=== PATIENT | female | born 1995 | race Caucasian/White ===

== ENCOUNTER 2022-04-01 18:11 | Emergency (ER) | payer MEDICAID, SELFPAY ==
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
[2022-04-01 18:09] VITALS: BP 105/64; PULSE 74; RESP 99; TEMP 36.4; O2SAT 99
--- NOTE | 2022-04-01 19:00 | DI.CT_ITS ---
Exam(s) CT HEAD WO EXAM: CT HEAD WO CLINICAL HISTORY: possible seizure, h/o craniotomy TECHNIQUE: COMPARISON: No exams were available for comparison FINDINGS: Noncontrast cranial CT was performed. No prior studies available for comparison. There is a large r ight craniotomy. There is severe right encephalomalacia and moderate left encephalomalacia/atrophy. No gross acute intracranial hemorrhage. No gross fracture. IMPRESSION: Severe presumably chronic encephalomalacia, right sided predominant, with large right frontal craniot shannon. No evidence of acute hemorrhage. Prior examination is requested for comparison to evaluate any possible change. RADIATION DOSE DELIVERED: 1,474.72mGy.cm Total DLP !Error CTDIvol DATA REPOSITORY: All CT scans at this facility are submitted to the National Radiology Data Registry (NRDR) Dose Index Registry (DIR) with the [employer] ([employer]). RADIATION OPTIMIZATION: All CT scans at this facility use at least one of these dose optimization te chniques: automated exposure control; mA and/or kV adjustment per patient size (includes targeted exa ms where dose is matched to clinical indication); or iterative reconstruction.
[2022-04-01 19:56] LABS: Abs Immature Grans 0.05 10^3/uL (0.0-0.06)
[2022-04-01 19:59] LABS: HCT 42.4 % (36.0-46.0); HGB 13.3 g/dL (11.2-15.7); MCH 30.4 pg (27.0-33.0); MCHC 31.4 % (32.0-36.0); MCV 97 fL (80-95); MPV 11.4 fL (8.0-11.0); Platelet Count 377 10^3/uL (130-400); RBC 4.37 10^6/uL (3.93-5.22); RDW 13.6 % (11.7-14.6); RDW-SD 49.1 fL; WBC 11.22 10^3/uL (4.4-10.8)
[2022-04-01 20:15] LABS: Absolute Eosinophil Count 0.11 10^3/uL (0.0-0.7); Absolute Lymphocyte Count 3.37 10^3/uL (1.2-3.4); Absolute Monocyte Count 0.45 10^3/uL (0.1-0.8); Absolute Neutrophil Count 7.29 10^3/uL (1.2-6.7)
[2022-04-01 20:16] LABS: ALT 105 U/L (14-59); AST 37 U/L (15-37); Albumin 3.5 g/dL (3.4-5.0); Alkaline Phosphatase 168 U/L (46-116); Anion Gap 5.8 mmol/L (3-11); BUN 22 mg/dL (7-18); Bilirubin, Total 0.2 mg/dL (0.2-1.0); CO2 33.2 mmol/L (21.0-32.0); CREATININE 0.4 mg/dL (0.55-1.02); Calcium 10.2 mg/dL (8.5-10.1); Chloride 102 mmol/L (98-107); Diff Comment Manual Differential; Estimated GFR 141.65 (mL/min/1.73m2); Glucose 87 mg/dL (74-106); Potassium 4.4 mmol/L (3.5-5.1); RBC Morphology Normal; Sodium 141 mmol/L (136-145); Total Protein 8.2 g/dL (6.4-8.2)
[2022-04-01] MEDS: Normal Saline 1,000 ML 1000 ML IV (20:28)
--- NOTE | 2022-04-01 20:36 | DI.VRAD_ITS ---
Addendum created by Radhames Crane MD on 04/01/2022 8:36:30 PM EDT: THIS REPORT CONTAINS FINDINGS THAT MAY BE CRITICAL TO PATIENT CARE. The findings were verbally communicated via telephone conference with domingo snow at 8:36 PM EDT on 04/01/2022. The findings were acknowledged and understood. Initial report created on 04/01/2022 8:36:12 PM EDT: PROCEDURE INFORMATION: Exam: CT Head Without Contrast Exam date and time: 04/01/2022 8:16 PM Age: 26 years old Clinical indication: Stroke-like symptoms; Other: Possible seizure, h/o craniotomy TECHNIQUE: Imaging protocol: Computed tomography of the head without contrast. Other technique: STROKE PROTOCOL was implemented. COMPARISON: No relevant prior studies available. FINDINGS: Brain: There is extensive encephalomalacia and volume loss seen throughout the right cerebral hemisphere with encephalomalacia/volume loss also identified along the inferior margin of the anterior left frontal lobe and in the anterior left insular region. Suspected chronic encephalomalacia also identified along the anterior aspect of the vermis and involving the adjacent midbrain. No acute transcortical infarction or recent intracranial hemorrhage is detected. Cerebral ventricles: Marked dilatation of the posterior body, trigone and temporal horn of the right lateral ventricle noted. Paranasal sinuses: Grossly clear throughout. Mastoid air cells: Grossly clear bilaterally. Bones/joints: A large right-sided craniectomy defect is seen associated with abnormal concavity of lateral right hemispheric contour and no acute fractures are detected. Soft tissues: Unremarkable. IMPRESSION: Grossly abnormal examination demonstrating multifocal encephalomalacia throughout both cerebral hemispheres and involving posterior fossa contents which may be posttraumatic and/or post ischemic in origin. Correlation with clinical data is requested. No acute transcortical infarction or recent intracranial hemorrhage is identified. ASSESSMENT: ASPECTS ([place] Stroke Program Early CT Score) is 10. Dictated and Authenticated by: Radhames Crane MD. Ordering:BRIAN Guthrie MD
[2022-04-01 21:07] VITALS: BP 106/67; PULSE 86; RESP 20; O2SAT 99
== END 2022-04-01 23:03 | disposition home or self-care (01) ==
PROVIDERS: Emergency Provider Physician Assistant; PCP Neuromusculoskeletal Medicine & OMM
DX: R56.9 Unspecified convulsions (principal); Z87.820 Personal history of traumatic brain injury
CPT/HCPCS: 80053; 96360; 99284; 70450; 85025; 99285

== ENCOUNTER 2023-03-22 23:23 | Emergency (ER) | payer MEDICAID, SELFPAY ==
[2023-03-22] VITALS (8 sets, daily range): BP systolic 96–104; BP diastolic 58–75; PULSE 66–73; RESP 12–17; TEMP 36.8; O2SAT 94–97
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
[2023-03-23] VITALS (36 sets, daily range): PULSE 65–81; RESP 10–24; O2SAT 93–98
[2023-03-23 00:45] LABS: Abs Immature Grans 0.05 10^3/uL (0.0-0.06); Absolute Basophil Count 0.05 10^3/uL (0.0-0.2); Absolute Eosinophil Count 0.13 10^3/uL (0.0-0.7); Absolute Lymphocyte Count 3.22 10^3/uL (1.2-3.4); Absolute Monocyte Count 1.56 10^3/uL (0.1-0.8); Absolute Neutrophil Count 4.09 10^3/uL (1.2-6.7); Basophils % 0.5; Eosinophils % 1.4; HCT 45.6 % (36.0-46.0); HGB 15.5 g/dL (11.2-15.7); Immature Grans % 0.5; Lymphocytes % 35.4; MCH 31.5 pg (27.0-33.0); MCV 93 fL (80-95); MPV 12.8 fL (8.0-11.0); Monocytes % 17.1; Neutrophils % 45.1; Nucleated RBC 0.2 % (0.0-0.3); Platelet Count 288 10^3/uL (130-400); RBC 4.92 10^6/uL (3.93-5.22); RDW 15.6 % (11.7-14.6); RDW-SD 53.2 fL
[2023-03-23 01:07] LABS: ALT 85 U/L (14-59); AST 34 U/L (15-37); Albumin 3.2 g/dL (3.4-5.0); Alkaline Phosphatase 244 U/L (46-116); Anion Gap 8.1 mmol/L (3-11); BUN 11 mg/dL (7-18); Bilirubin, Total 0.2 mg/dL (0.2-1.0); CO2 31.9 mmol/L (21.0-32.0); CREATININE 0.5 mg/dL (0.55-1.02); Calcium 10.8 mg/dL (8.5-10.1); Chloride 95 mmol/L (98-107); Glucose 101 mg/dL (74-106); NT-proBNP 15 pg/mL (<300); Potassium 3.4 mmol/L (3.5-5.1); Sodium 135 mmol/L (136-145); Total Protein 8.8 g/dL (6.4-8.2)
[2023-03-23 01:14] LABS: Procalcitonin < 0.1 ng/mL
[2023-03-23 01:20] LABS: Bilirubin Negative (Negative); Blood Negative (Negative); Clarity Cloudy (Clear); Glucose Negative (Negative); Ketones Negative (Negative); Leukocyte Esterase Small (Negative); Nitrite Positive (Negative); Specific Gravity 1.015 (1.005-1.025); Urobilinogen 0.2 mg/dL (Up to 0.2); pH 7.5 (5-8)
[2023-03-23] MEDS: Omnipaque 350 MG/ML 100 ML BTL IJ (01:25)
[2023-03-23] MEDS: Normal Saline - Diluent 50 ML VIAL IJ (01:26)
[2023-03-23] MEDS: Normal Saline Flush 10 ML SYR IVP (01:26)
[2023-03-23 01:38] LABS: Bacteria Few HPF (Negative); Crystals Moderate Amorphous HPF (Negative); Epithelial Cells Few HPF (Negative); RBC 0-2 HPF (0-2)
[2023-03-23 01:39] LABS: C & S Indicated? Yes; Mucus Negative (Negative)
[2023-03-23 01:43] LABS: COVID-19 PCR Negative (Negative); Influenza A PCR Negative (Negative); Influenza B PCR Negative (Negative); RSV PCR Negative (Negative)
[2023-03-23 01:49] LABS: Source Nasopharynx
--- NOTE | 2023-03-23 01:50 | TELEP.MEDR_ITS ---
Date of service: 03/23/23 Time of Service: 01:50 [facility] Home Med Rec Allergies Allergies: No Known Allergies Allergy (Unverified 03/22/23 23:42) Interview Person Interviewed: * Patients mother, Radha Quality Quality of Interview/Accuracy of Medication List: Good Sources Sources used to compile medication list: [employer] Medication List and SureScripts Changes made to Home Medication List: ADDITIONS: * Nexium 40mg granules in packet per gtube daily * Chlorthalidone 25mg per gtube daily * Nystatin powder 1 application topically bid prn * Miralax 17g per gtube daily prn DELETIONS: * Bromocriptine * Dantrolene * Famotidine CHANGES: * Keppra 1000mg per gtube bid and additional 500mg daily prn * Senna 5mL per gtube daily prn (was scheduled) * Valproic acid 250mg/5mL per gtube bid (was tid) * Chlorhexidine 0.12% mouth was daily (was bid) Additional Notes Additional Notes: * Patients mother wasnt sure if albuterol or Duoneb was being used at home in the nebulizer machine for this patient. No recent fill history in surescript data to be help clarify. Recommended Changes Recommended Changes(reason for recommendation): * None Attestation: The home medication list is now updated to the best of my knowledge and is ready to be reconciled by the provider. Please contact the [facility] Medication Reconciliation Pharmacist at for any questions.
--- NOTE | 2023-03-23 01:50 | TELEP.MEDREC ---
Date of service: 03/23/23 Time of Service: 01:50 [facility] Home Med Rec Allergies Allergies: No Known Allergies Allergy (Unverified 03/22/23 23:42) Interview Person Interviewed: Patients mother, Radha Quality Quality of Interview/Accuracy of Medication List: Good Sources Sources used to compile medication list: [employer] Medication List and SureScripts Changes made to Home Medication List: ADDITIONS: Nexium 40mg granules in packet per gtube daily Chlorthalidone 25mg per gtube daily Nystatin powder 1 application topically bid prn Miralax 17g per gtube daily prn DELETIONS: Bromocriptine Dantrolene Famotidine CHANGES: Keppra 1000mg per gtube bid and additional 500mg daily prn Senna 5mL per gtube daily prn (was scheduled) Valproic acid 250mg/5mL per gtube bid (was tid) Chlorhexidine 0.12% mouth was daily (was bid) Additional Notes Additional Notes: Patients mother wasnt sure if albuterol or Duoneb was being used at home in the nebulizer machine for this patient. No recent fill history in surescript data to be help clarify. Recommended Changes Recommended Changes(reason for recommendation): None Attestation: The home medication list is now updated to the best of my knowledge and is ready to be reconciled by the provider. Please contact the [facility] Medication Reconciliation Pharmacist at for any questions.
[2023-03-23] MEDS: cefTAZidime 2,000 MG in Normal Saline 100 ML 200 MG IVPB (03:33)
--- NOTE | 2023-03-23 04:22 | DI.VRAD_ITS ---
PROCEDURE INFORMATION: Exam: CT Chest With Contrast; Diagnostic Exam date and time: 03/23/2023 1:51 AM Age: 27 years old Clinical indication: Prior surgery; Surgery date: 6+ months; Surgery type: HX of gastrostomy, splenectomy, tracheostomy; Patient HX: Cough, abd distension, UTI, HX of stones; Additional info: Hemiplegiam tbi TECHNIQUE: Imaging protocol: Diagnostic computed tomography of the chest with contrast. 3D rendering (Not supervised by radiologist): MIP and/or 3D reconstructed images were created by the technologist. Radiation optimization: All CT scans at this facility use at least one of these dose optimization techniques: automated exposure control; mA and/or kV adjustment per patient size (includes targeted exams where dose is matched to clinical indication); or iterative reconstruction. Contrast material: OMNIPAQUE 350; Contrast volume: 100 ml; Contrast route: INTRAVENOUS (IV); COMPARISON: No relevant prior studies available. FINDINGS: Limitations: Extensive streak artifact, created largely by arm positioning. Trachea: Apparent tracheostomy defect in the lower anterior neck. Clinical correlation recommended. Lungs: Dependent atelectasis. Otherwise, no pulmonary consolidation. Pleural spaces: No pleural effusion or pneumothorax. Heart: Normal-sized heart. Lymph nodes: No pathologically enlarged mediastinal or hilar lymph nodes. Vasculature: No thoracic aortic aneurysm or dissection. Bones/joints: No acute fracture seen among the bones of the chest. Soft tissues: No gross soft tissue mass or fluid collection seen in the chest wall. IMPRESSION: No active disease is seen in the chest. PROCEDURE INFORMATION: Exam: CT Abdomen And Pelvis With Contrast Exam date and time: 03/23/2023 1:51 AM Age: 27 years old Clinical indication: Prior surgery; Surgery date: 6+ months; Surgery type: HX of gastrostomy, splenectomy, tracheostomy; Patient HX: Cough, abd distension, UTI, HX of stones; Additional info: Hemiplegiam tbi TECHNIQUE: Imaging protocol: Computed tomography of the abdomen and pelvis with contrast. 3D rendering (Not supervised by radiologist): MIP and/or 3D reconstructed images were created by the technologist. Radiation optimization: All CT scans at this facility use at least one of these dose optimization techniques: automated exposure control; mA and/or kV adjustment per patient size (includes targeted exams where dose is matched to clinical indication); or iterative reconstruction. Contrast material: OMNIPAQUE 350; Contrast volume: 100 ml; Contrast route: INTRAVENOUS (IV); COMPARISON: No relevant prior studies available. FINDINGS: Tubes, catheters and devices: No oral contrast. Gastrostomy catheter in-situ with its retention balloon located in the gastric lumen. Stomach largely decompressed. No small bowel dilatation to suggest obstruction. Liver: Normal appearing liver. Gallbladder and bile ducts: Gallbladder partially collapsed. No calcified gallstones seen. No biliary dilatation. Pancreas: Normal appearing pancreas. Spleen: Prior splenectomy. Adrenal glands: Normal appearing adrenal glands. Kidneys and ureters: Probable small nonobstructing renal calculi versus an artifactual appearance created by early contrast excretion. No hydronephrosis. No obstructing ureteral stones. Stomach and bowel: Colon largely well evacuated of fecal material. Fluid throughout the colon and rectum suggesting diarrhea. No evidence of diverticulitis or colitis. Appendix: Normal appendix. Intraperitoneal space: No gross ascites or free air. Vasculature: Normal caliber abdominal aorta. Lymph nodes: No pathologically enlarged mesenteric, retroperitoneal, or pelvic sidewall lymph nodes. Urinary bladder: Urinary bladder largely collapsed around a Gomes catheter balloon. Reproductive: Anteverted uterus, normal in size. Normal-sized ovaries. Bones/joints: No acute fracture seen among the bones of the abdomen or pelvis. Heterogeneous density in the left sacral ala with an appearance worrisome for a possible developing sacral insufficiency fracture, uncertain finding. Comparison with prior imaging recommended. Otherwise, no acute fracture seen among the bones of the abdomen or pelvis. Soft tissues: No significant ventral or inguinal hernia. Foci of subcutaneous gas in the anterior abdominal wall. Recent subcutaneous injections? IMPRESSION: Fluid throughout the colon suggesting diarrhea. No evidence of diverticulitis or colitis. Dictated and Authenticated by: Jacobo Chambers MD. Ordering:SHADIA Aragon MD
--- NOTE | 2023-03-23 05:05 | NUR.NOTE ---
Pt is non verbal and started indicating pain per the pts mother, tourniquet found still on pt post blood draw, PREM
--- NOTE | 2023-03-23 23:30 | DI.CT_ITS ---
Exam(s) CT CHEST/ABD/PEL W EXAM: CT CHEST/ABD/PEL W CLINICAL HISTORY: cough, abd distension, uti, hx of stones TECHNIQUE: Imaging Protocol: Axial computed tomography images with coronal and sagittal reformatted images were created and reviewed CONTRAST MATERIAL: Intravenous: Omnipaque 350 contrast volume:100 mL Oral: No COMPARISON: No exams were available for comparison FINDINGS: The examination is limited due to patient motion artifact. There is streak artifact secondary to vazquez ent arm positioning. CHEST: Tracheobronchial tree: Patent where visualized. Pulmonary parenchyma: There is dependent atelectasis in the lungs. No architectural distortion. Visualized thyroid gland: Unremarkable. Mediastinum and [place]: No dominant adenopathy or fluid collection. The esophagus is unremarkable. Pleura: No effusion or pneumothorax. Heart: The heart is not dilated. No coronary artery calcifications are seen. No pericardial effusion. Pulmonary arteries: Segmental and subsegmental pulmonary arteries are inadequately opacified. No lar ge central pulmonary embolism is present. Aorta: Thoracic aorta non-dilated. No evidence of dissection. Lymph nodes: Within normal limits. Soft tissues: Unremarkable. Bones:Within normal limits for the patient's age. ABDOMEN: Liver: Normal density. No measurable mass. Portal, Superior Mesenteric, and Splenic Veins: Unremarkable. Gallbladder and Biliary Tract: No radiodense calculus or dilation. Pancreas: Normal density, no abnormal calcifications or inflammatory process. Spleen: The spleen is absent. Adrenals: No masses seen. Kidneys: Normal size, contour and axis. Nephrolithiasis. No hydronephrosis. No masses seen. Abdominal Aorta: Abdominal portion non-dilated. Bowel: There is a percutaneous gastrostomy tube in place. It is in good position. There is fluid se en throughout the colon and rectum which may be related to the patient's diet or possible diarrhea. There is no bowel wall thickening or obstruction present. There is no evidence of appendix Peritoneal Cavity: No ascites, collection or mesenteric inflammatory response. No free air. Lymph Nodes: Within normal limits. Bones: Within normal limits for the patient's age. Soft Tissues: There is diffuse muscle fatty atrophy. There are few foci of gas seen in the anterior abdominal wall bilaterally. This may reflect recent injections. Please correlate clinically. PELVIS: Bladder: The urinary bladder is incompletely distended. There is a Gomes catheter in place. There i s diffuse thickening of the wall of the urinary bladder which likely is due to underdistention. Reproductive Organs: Unremarkable as visualized. Lymph Nodes: Within normal limits. Bones: There is some linear sclerosis seen in the left sacral ala worrisome for developing insufficie ncy fracture. IMPRESSION: 1. Bilateral dependent atelectatic changes in the lungs. Pneumonia cannot be entirely excluded. 2. Fluid seen throughout the colon and rectum which may reflect the patient's diet versus diarrheal i llness. Please correlate clinically. 3. Findings in the abdomen and pelvis as described above. Unexpected findings RADIATION DOSE DELIVERED: 1,876.5mGy.cm Total DLP DATA REPOSITORY: All CT scans at this facility are submitted to the National Radiology Data Registry (NRDR) Dose Index Registry (DIR) with the [employer] ([employer]). RADIATION OPTIMIZATION: All CT scans at this facility use at least one of these dose optimization te chniques: automated exposure control; mA and/or kV adjustment per patient size (includes targeted exa ms where dose is matched to clinical indication); or iterative reconstruction.
== END 2023-03-23 06:47 | disposition home or self-care (01) ==
PROVIDERS: Emergency Provider Student in an Organized Health Care Education/Training Program; PCP Neuromusculoskeletal Medicine & OMM
DX: R50.9 Fever, unspecified (principal); N39.0 Urinary tract infection, site not specified; G82.50 Quadriplegia, unspecified; Z90.81 Acquired absence of spleen; Z90.3 Acquired absence of stomach [part of]; Z93.0 Tracheostomy status; Z93.1 Gastrostomy status; Z87.820 Personal history of traumatic brain injury; Z86.73 Personal history of transient ischemic attack (TIA), and cerebral infarction without residual deficits
CPT/HCPCS: 74177; 80053; 84145; 87040; 87077; 87637; 96365; 99285; 71260; 81003; 81015; 83605; 83880; 85025; 87086; 87186; J0713; J3490